=== PATIENT | male | born 1965 | race Caucasian/White ===

== ENCOUNTER 2018-04-09 16:20 | Emergency (ER) | payer SELFPAY ==
[~2018-04-09] VITALS: Ht 170.2 cm; Wt 81.6 kg
[2018-04-09 17:22] VITALS: BP 128/88
== END 2018-04-09 17:08 | disposition home or self-care (01) ==
LOC: ER 16:20
DX: T67.5XXA Heat exhaustion, unspecified, initial encounter (principal); F17.210 Nicotine dependence, cigarettes, uncomplicated; X58.XXXA Exposure to other specified factors, initial encounter; Y93.89 Activity, other specified; Y92.89 Other specified places as the place of occurrence of the external cause; Y99.8 Other external cause status
CPT/HCPCS: 93005